=== PATIENT | male | born 1980 | race Caucasian/White ===

== ENCOUNTER 2022-03-31 09:55 | Emergency (ER) | payer BC ==
[2022-03-31] MEDS ORDERED: SODIUM CHLORIDE 0.9% 1,000 ML IV STA (10:03)
[2022-03-31 10:04] LABS: Glucose,Whole Blood 107 mg/dL (70-110)
[2022-03-31] MEDS ORDERED: ONDANSETRON 4 MG TAB PO STA (10:09)
[2022-03-31] MEDS ORDERED: MECLIZINE 12.5 MG TAB PO STA (10:09)
--- NOTE | 2022-03-31 10:17 | ED ---
Dizziness HPI - General Chief Complaint: Dizziness Stated Complaint: near syncope Time Seen by Provider: 03/31/22 10:01 Source: patient, EMS, RN notes reviewed, old records reviewed Mode of arrival: EMS Limitations: no limitations - History of Present Illness Initial Comments: This is a well-appearing 41-year-old male that presents to the emergency room with complaints of sudden onset of dizziness with room spinning. Patient states that he became nauseous but did not vomit. He states he was sitting at his desk talking on the phone when the symptoms came on. He does have a history of high blood pressure and high cholesterol, also takes dicyclomine for bowel problems and Pepcid for GERD. MD Complaint: dizziness -: minutes(s) Timing: sudden onset, constant Description: "room spinning", nausea History of Same: No History of Trauma: No Severity: moderate Improves With: remaining still Worsens With: movement Associated Symptoms: other (nausea) - Related Data Home Medications Medication Instructions Recorded Confirmed Atorvastatin [Lipitor] 10 mg PO HS 03/31/22 03/31/22 Dicyclomine [Bentyl] 20 mg PO AC-BID 03/31/22 03/31/22 Ergocalciferol [Vitamin D2 (1250 1,250 mcg PO FR 03/31/22 03/31/22 Mcg = 91326 Iu)] Magnesium Oxide [Magnesium] 500 mg PO HS 03/31/22 03/31/22 Omeprazole 20 mg PO AC-BID 03/31/22 03/31/22 Testosterone Cypionate 200 mg IM Q21D 03/31/22 03/31/22 [Depo-Testosterone] Ubidecarenone [Coenzyme Q10] 200 mg PO HS 03/31/22 03/31/22 hydroCHLOROthiazide 25 mg PO DAILY 03/31/22 03/31/22 lisinopriL 40 mg PO DAILY 03/31/22 03/31/22 Previous Rx's Medication Instructions Recorded Meclizine [Antivert] 25 mg PO TID PRN #15 tab 03/31/22 Allergies Allergy/AdvReac Type Severity Reaction Status Date / Time No Known Allergies Allergy Verified 03/31/22 11:48 Review of Systems ROS Statement: Those systems with pertinent positive or pertinent negative responses have been documented in the HPI. ROS Other: All systems not noted in ROS Statement are negative. Past Medical History Past Medical History: Hyperlipidemia, Hypertension History of Any Multi-Drug Resistant Organisms: None Reported Past Surgical History: No Surgical Hx Reported Past Psychological History: No Psychological Hx Reported Smoking Status: Never smoker Past Alcohol Use History: Occasional Past Drug Use History: None Reported General Exam Limitations: no limitations General appearance: alert, in no apparent distress Head exam: Present: atraumatic, normocephalic, normal inspection Eye exam: Present: EOMI, nystagmus (horizontal left beating). Absent: scleral icterus, conjunctival injection, periorbital swelling, periorbital tenderness ENT exam: Present: mucous membranes moist Neck exam: Absent: tenderness, meningismus Respiratory exam: Present: normal lung sounds bilaterally. Absent: respiratory distress, wheezes, rales, rhonchi, stridor, chest wall tenderness, accessory muscle use Cardiovascular Exam: Present: regular rate, normal rhythm, normal heart sounds Rectal exam: Present: normal rectal tone. Absent: black stool, bloody stool, mass, tenderness Extremities exam: Present: normal capillary refill Neurological exam: Present: alert, oriented X3, CN II-XII intact Expanded Patient oriented to: Present: person, place, time Speech: Present: fluid speech Cranial nerves: EOM's Intact: Normal, Gag Reflex: Normal, Tongue Deviation: N ormal, Nystagmus: Normal (horizontal ) Cerebellar function: Finger to Nose: Normal Motor strength exam: RUE: 5, LUE: 5, RLE: 5, LLE: 5 Eye Response: (4) open spontaneously Motor Response: (6) obeys commands Verbal Response: (5) oriented Abby Total: 15 Psychiatric exam: Present: normal affect, normal mood Skin exam: Present: warm, dry, normal color. Absent: cyanosis, diaphoretic, petechiae, pallor Course Vital Signs 03/31/22 03/31/22 10:07 11:56 Temperature 98.2 F 98.1 F Pulse Rate 72 65 Respiratory 18 16 Rate Blood Pressure 129/95 140/91 O2 Sat by Pulse 96 100 Oximetry EKG Findings - EKG Results: EKG: sinus rhythm (Ventricular rate 64, OR interval 0.182, QRS 0.121, QTC 0.425) Medical Decision Making - Medical Decision Making Patient presents with sudden onset of dizziness described as the room spinning. States it's worse with movement especially leaning head backward. He was nauseated but did not vomit. On exam there is evidence of horizontal nystagmus. Patient has no focal neurological deficits. Denies any headache. No head trauma. Labs are unremarkable. EKG shows sinus rhythm with no ST elevation. Patient did get relief with Antivert. This is likely BPV and he will be directed to follow up with the ENT. Dr. Moore at bedside is agreeable to this plan of care. Patient was d ischarged with a visitor, vital signs are stable. - Lab Data Result diagrams: 03/31/22 10:12 03/31/22 10:12 Lab Results 03/31/22 03/31/22 03/31/22 Range/Units 09:58 10:12 10:12 WBC 6.3 (3.8-10.6) k/uL RBC 5.42 (4.30-5.90) m/uL Hgb 15.6 (13.0-17.5) gm/dL Hct 46.5 (39.0-53.0) % MCV 85.9 (80.0-100.0) fL MCH 28.9 (25.0-35.0) pg MCHC 33.7 (31.0-37.0) g/dL RDW 12.5 (11.5-15.5) % Plt Count 254 (150-450) k/uL MPV 7.5 Neutrophils % 69 % Lymphocytes % 21 % Monocytes % 8 % Eosinophils % 1 % Basophils % 1 % Neutrophils # 4.3 (1.3-7.7) k/uL Lymphocytes # 1.3 (1.0-4.8) k/uL Monocytes # 0.5 (0-1.0) k/uL Eosinophils # 0.1 (0-0.7) k/uL Basophils # 0.0 (0-0.2) k/uL Sodium 140 (137-145) mmol/L Potassium 3.8 (3.5-5.1) mmol/L Chloride 102 (98-107) mmol/L Carbon Dioxide 25 (22-30) mmol/L Anion Gap 13 mmol/L BUN 12 (9-20) mg/dL Creatinine 0.96 (0.66-1.25) mg/dL Est GFR (CKD-EPI)AfAm >90 (>60 ml/min/1.73 sqM) Est GFR (CKD-EPI)NonAf >90 (>60 ml/min/1.73 sqM) Glucose 107 H (74-99) mg/dL POC Glucose (mg/dL) 107 (70-110) mg/dL POC Glu Tube Tester ID Franco Melendrez Calcium 9.4 (8.4-10.2) mg/dL Magnesium 1.9 (1.6-2.3) mg/dL Total Bilirubin 1.4 H (0.2-1.3) mg/dL AST 41 (17-59) U/L ALT 49 (4-49) U/L Alkaline Phosphatase 59 (38-126) U/L Troponin I (0.000-0.034) ng/mL Total Protein 7.4 (6.3-8.2) g/dL Albumin 4.9 (3.5-5.0) g/dL 03/31/22 Range/Units 10:12 WBC (3.8-10.6) k/uL RBC (4.30-5.90) m/uL Hgb (13.0-17.5) gm/dL Hct (39.0-53.0) % MCV (80.0-100.0) fL MCH (25.0-35.0) pg MCHC (31.0-37.0) g/dL RDW (11.5-15.5) % Plt Count (150-450) k/uL MPV Neutrophils % % Lymphocytes % % Monocytes % % Eosinophils % % Basophils % % Neutrophils # (1.3-7.7) k/uL Lymphocytes # (1.0-4.8) k/uL Monocytes # (0-1.0) k/uL Eosinophils # (0-0.7) k/uL Basophils # (0-0.2) k/uL Sodium (137-145) mmol/L Potassium (3.5-5.1) mmol/L Chloride (98-107) mmol/L Carbon Dioxide (22-30) mmol/L Anion Gap mmol/L BUN (9-20) mg/dL Creatinine (0.66-1.25) mg/dL Est GFR (CKD-EPI)AfAm (>60 ml/min/1.73 sqM) Est GFR (CKD-EPI)NonAf (>60 ml/min/1.73 sqM) Glucose (74-99) mg/dL POC Glucose (mg/dL) (70-110) mg/dL POC Glu Tube Tester ID Calcium (8.4-10.2) mg/dL Magnesium (1.6-2.3) mg/dL Total Bilirubin (0.2-1.3) mg/dL AST (17-59) U/L ALT (4-49) U/L Alkaline Phosphatase (38-126) U/L Troponin I <0.012 (0.000-0.034) ng/mL Total Protein (6.3-8.2) g/dL Albumin (3.5-5.0) g/dL Disposition Clinical Impression: Peripheral vertigo Disposition: HOME SELF-CARE Condition: Good Instructions (If sedation given, give patient instructions): Benign Paroxysmal Positional Vertigo (ED), Dizziness (ED) Additional Instructions: Take the Antivert as prescribed. Do not drive or operate heavy machinery while having dizziness. Follow-up with ENT doctor next week. Return to the emergency room with any new or concerning symptoms including headaches, inability to ambulate or weakness. Prescriptions: Meclizine [Antivert] 25 mg PO TID PRN #15 tab PRN Reason: Vertigo Is patient prescribed a controlled substance at d/c from ED?: No Referrals: Nonstaff,Physician [Primary Care Provider] - 1-2 days Juan Pablo Gamble DO [Doctor of Osteopathic Medicine] - 1-2 days Time of Disposition: 11:44
[2022-03-31 11:02] LABS: Basophils % (A) 1 %; Eosinophils # (A) 0.1 k/uL (0-0.7); Eosinophils % (A) 1 %; HCT 46.5 % (39.0-53.0); HGB 15.6 gm/dL (13.0-17.5); Lymphocytes # (A) 1.3 k/uL (1.0-4.8); Lymphocytes % (A) 21 %; MCH 28.9 pg (25.0-35.0); MCHC 33.7 g/dL (31.0-37.0); MCV 85.9 fL (80.0-100.0); Mean Platelet Volume 7.5; Monocytes # (A) 0.5 k/uL (0-1.0); Monocytes % (A) 8 %; Neutrophils # (A) 4.3 k/uL (1.3-7.7); Neutrophils % (A) 69 %; Platelet Count 254 k/uL (150-450); RBC 5.42 m/uL (4.30-5.90); RDW 12.5 % (11.5-15.5); WBC 6.3 k/uL (3.8-10.6)
[2022-03-31 11:07] LABS: ALT 49 U/L (4-49); AST 41 U/L (17-59); African American GFR (CKD) >90 (>60 ml/min/1.73 sqM); Albumin 4.9 g/dL (3.5-5.0); Alkaline Phosphatase 59 U/L (38-126); Anion Gap 13 mmol/L; Blood Urea Nitrogen 12 mg/dL (9-20); Calcium 9.4 mg/dL (8.4-10.2); Carbon Dioxide 25 mmol/L (22-30); Chloride 102 mmol/L (98-107); Glucose 107 mg/dL (74-99); Magnesium 1.9 mg/dL (1.6-2.3); Non-African American GFR(CKD) >90 (>60 ml/min/1.73 sqM); Potassium 3.8 mmol/L (3.5-5.1); Sodium 140 mmol/L (137-145); Total Bilirubin 1.4 mg/dL (0.2-1.3); Total Protein 7.4 g/dL (6.3-8.2)
[2022-03-31 12:00] VITALS: BP 140/91; PULSE 65; RESP 16; TEMP 98.1
== END 2022-03-31 11:56 | disposition home or self-care (01) ==
LOC: EC 09:55
DX: H81.399 Other peripheral vertigo, unspecified ear (principal); E78.5 Hyperlipidemia, unspecified; I10 Essential (primary) hypertension
CPT/HCPCS: 36415; 80053; 83735; 84484; 85025; 93005; 96360; 99285